=== PATIENT | female | born 1985 | race Caucasian/White ===

== ENCOUNTER 2018-04-24 20:55 | Emergency (ER) | payer SELFPAY ==
[~2018-04-24] VITALS: Ht 162.6 cm; Wt 59.0 kg
--- NOTE | 2018-04-24 21:10 | NUR ---
BIBSELF S/P GETTING HIT IN THE HEAD AT WORK. DENIES LOC. PT AAOX3, VSS. DENIES DIZZINESS, N/V, WEAKNESS @ THIS TIME. PT SEEN & EVAL'D BY DR. WHEELER. WILL CONT TO MONITOR.
--- NOTE | 2018-04-24 21:41 | NUR ---
Patient discharged to home in stable condition. Written and verbal after care instructions given. Patient verbalizes understanding of instruction.
[2018-04-24 21:45] VITALS: BP 120/74
== END 2018-04-24 21:46 | disposition home or self-care (01) ==
LOC: ER 20:58
DX: S00.03XA Contusion of scalp, initial encounter (principal); W18.09XA Striking against other object with subsequent fall, initial encounter; Y93.89 Activity, other specified; Y92.89 Other specified places as the place of occurrence of the external cause; Y99.0 Civilian activity done for income or pay
CPT/HCPCS: 99281; A4606; Z7610; Z7502